=== PATIENT | male | born 1985 | race Two or more races ===

== ENCOUNTER 2020-09-21 20:01 | Emergency (ER) | payer SELFPAY ==
[~2020-09-21] VITALS: Ht 175.3 cm; Wt 100.0 kg
[2020-09-21] MEDS ORDERED: ONDANSETRON PF 4 MG/2 ML VIAL. IVP ONE (20:45)
[2020-09-21] MEDS ORDERED: IV NORMAL SALINE 1000ML BAG 1,000 ML IV SCH (20:45)
[2020-09-21] MEDS ORDERED: fentaNYL PF VIAL 100 MCG/2 ML VIAL IVP ONE (20:45)
--- NOTE | 2020-09-21 21:03 | PHYS DOC ---
General Adult EDM: Chief Complaint: ABDOMINAL PAIN HPI: HPI: Patient is a 35 year old male who presents with 10 days of abdominal redness that is very tender with slight swelling and is hard to palpate over the umbilical area. Patient denies any drainage from this area. He states he has had some nausea and vomiting and lack of appetite. He states he is been trying to take ibuprofen at home but it does not help his pain. He states is a burning type pain. He rates it at a 10 out of 10. He states is also been burning with urination and not going on for the last 10 days also. He denies any past medical history or surgeries. He denies smoking or drinking. Patient is Danish-speaking and deaf. Patient can read lips. Patient's family member is in the room with him and we are also using the educational sign language interpreter phone. (TROY RIVERA APRN) Review of Systems: Review of Systems: Constitutional: Denies fever or chills. [] Eyes: Denies change in visual acuity. [] HENT: Denies nasal congestion or sore throat. [] Respiratory: Denies cough or shortness of breath. [] Cardiovascular: Denies chest pain or edema. [] GI: + abdominal pain, +nausea, +vomiting, denies bloody stools or diarrhea. [] : + dysuria. [] Musculoskeletal: Denies back pain or joint pain. [] Integument: Denies rash. + Abdominal redness [] Neurologic: Denies headache, focal weakness or sensory changes. [] Endocrine: Denies polyuria or polydipsia. [] Lymphatic: Denies swollen glands. [] Psychiatric: Denies depression or anxiety. [] (TROY RIVERA APRN) Heart Score: C/O Chest Pain: No Risk Factors: Risk Factors: DM, Current or recent (<one month) smoker, HTN, HLP, family history of CAD, obesity. Risk Scores: Score 0 - 3: 2.5% MACE over next 6 weeks - Discharge Home Score 4 - 6: 20.3% MACE over next 6 weeks - Admit for Clinical Observation Score 7 - 10: 72.7% MACE over next 6 weeks - Early Invasive Strategies (TROY RIVERA APRN) Current Medications: Current Medications Medications (Trade) Dose Ordered Sig/Aga Start Time Stop Time Status Last Admin Dose Admin Fentanyl Citrate (Fentanyl 2ml Vial) 50 mcg 1X ONCE 09/21/20 20:45 09/21/20 20:46 UNV Ondansetron HCl (Zofran) 4 mg 1X ONCE 09/21/20 20:45 09/21/20 20:46 UNV Sodium Chloride 1,000 ml @ 1,000 mls/hr Q1H 09/21/20 20:45 09/21/20 21:44 UNV (TROY RIVERA APRN) Physical Exam: PE: Constitutional: Well developed, well nourished, no acute distress, non-toxic appearance. [] HENT: Normocephalic, atraumatic, bilateral external ears normal, oropharynx moist, no oral exudates, nose normal. [] Eyes: PERRLA, EOMI, conjunctiva normal, no discharge. [] Neck: Normal range of motion, no tenderness, supple, no stridor. [] Cardiovascular:Heart rate regular rhythm, no murmur [] Lungs & Thorax: Bilateral breath sounds clear to auscultation [] Abdomen: Bowel sounds normal, soft, umbilical tenderness, no masses, no pulsatile masses. [] Skin: Warm, dry, umbilical erythema and a hard nonfluctuant area to the umbilical, no rash. [] Back: No tenderness, no CVA tenderness. [] Extremities: No tenderness, no cyanosis, no clubbing, ROM intact, no edema. [] Neurologic: Alert and oriented X 3, normal motor function, normal sensory function, no focal deficits noted. [] Psychologic: Affect normal, judgement normal, mood normal. [] (TROY RIVERA APRN) Current Patient Data: Labs: Laboratory Tests Test 09/21/20 21:25 09/21/20 23:50 White Blood Count 12.2 x10^3/uL Red Blood Count 5.29 x10^6/uL Hemoglobin 14.8 g/dL Hematocrit 43.5 % Mean Corpuscular Volume 82 fL Mean Corpuscular Hemoglobin 28 pg Mean Corpuscular Hemoglobin Concent 34 g/dL Red Cell Distribution Width 13.5 % Platelet Count 343 x10^3/uL Neutrophils (%) (Auto) 51 % Lymphocytes (%) (Auto) 38 % Monocytes (%) (Auto) 9 % Eosinophils (%) (Auto) 1 % Basophils (%) (Auto) 1 % Neutrophils # (Auto) 6.2 x10^3/uL Lymphocytes # (Auto) 4.6 x10^3/uL Monocytes # (Auto) 1.1 x10^3/uL Eosinophils # (Auto) 0.1 x10^3/uL Basophils # (Auto) 0.1 x10^3/uL Sodium Level 143 mmol/L Potassium Level 3.9 mmol/L Chloride Level 105 mmol/L Carbon Dioxide Level 27 mmol/L Anion Gap 11 Blood Urea Nitrogen 11 mg/dL Creatinine 0.8 mg/dL Estimated GFR (Cockcroft-Gault) 110.7 BUN/Creatinine Ratio 14 Glucose Level 106 mg/dL Lactic Acid Level 1.2 mmol/L Calcium Level 8.7 mg/dL Total Bilirubin 0.2 mg/dL Aspartate Amino Transf (AST/SGOT) 22 U/L Alanine Aminotransferase (ALT/SGPT) 57 U/L Alkaline Phosphatase 94 U/L Troponin I Quantitative < 0.017 ng/mL Total Protein 7.4 g/dL Albumin 3.8 g/dL Albumin/Globulin Ratio 1.1 Lipase 135 U/L Urine Collection Type Unknown Urine Color Yellow Urine Clarity Clear Urine pH 6.5 Urine Specific [place] 1.020 Urine Protein Negative mg/dL Urine Glucose (UA) Negative mg/dL Urine Ketones (Stick) Negative mg/dL Urine Blood Negative Urine Nitrite Negative Urine Bilirubin Negative Urine Urobilinogen Dipstick 0.2 mg/dL Urine Leukocyte Esterase Negative Urine RBC 0 /HPF Urine WBC Rare /HPF Urine Squamous Epithelial Cells Occ /LPF Urine Bacteria 0 /HPF Current Medications Medications (Trade) Dose Ordered Sig/Aga Route PRN Reason Start Time Stop Time Status Last Admin Dose Admin Sodium Chloride 1,000 ml @ 1,000 mls/hr Q1H IV 09/21/20 20:45 09/21/20 21:44 DC 09/21/20 21:36 Fentanyl Citrate (Fentanyl 2ml Vial) 50 mcg 1X ONCE IVP 09/21/20 20:45 09/21/20 21:02 DC 09/21/20 21:37 Ondansetron HCl (Zofran) 4 mg 1X ONCE IVP 09/21/20 20:45 09/21/20 21:02 DC 09/21/20 21:36 Iohexol (Omnipaque 300 Mg/ml) 75 ml 1X ONCE IV 09/21/20 22:00 09/21/20 22:01 DC 09/21/20 22:27 Info (CONTRAST GIVEN -- Rx MONITORING) 1 each PRN DAILY PRN MC SEE COMMENTS 09/21/20 22:00 09/23/20 21:59 Vital Signs: Vital Signs Date Time Temp Pulse Resp B/P (MAP) Pulse Ox O2 Delivery O2 Flow Rate FiO2 09/21/20 21:37 20 97 Room Air Vital Signs Date Time Temp Pulse Resp B/P (MAP) Pulse Ox O2 Delivery O2 Flow Rate FiO2 09/21/20 21:37 20 97 Room Air (DESTINI NICHOLS DO) EKG: EK and read by Dr. Jerome as sinus rhythm and no STEMI (TROY RIVERA [facility]) Radiology/Procedures: Radiology/Procedures: [] (TROY RIVERA LEARNING CONSULTANT) Radiology/Procedures: Exam: CT of abdomen and pelvis with contrast INDICATION: Abdominal cellulitis, possible abscess TECHNIQUE: Sequential axial images through the abdomen and pelvis obtained following the administration of 75 mL of Isovue-370 IV contrast. Sagittal and coronal reformatted images were reconstructed from the axial data and reviewed. Exposure: One or more of the following in the visualized dose reduction techniques were utilized for this examination: 1. Automated exposure control 2. Adjustment of the MA and/or KV according to patient size 3. Use of iterative of reconstructive technique Comparisons: None FINDINGS: Heart size is normal. No pericardial effusion. Visualized lung bases are clear. No pleural effusion. Diffuse hepatic steatosis. Spleen, pancreas and adrenals are unremarkable. Gallbladder surgically absent. No perinephric inflammation or hydronephrosis. No renal or ureteral calculi are identified. Bladder is distended and appears thin-walled. Prostate is not enlarged. Large and small bowel are unremarkable. Appendix is normal. No free intra- abdominal air or fluid. No obstruction. Abdominal aorta has a normal course and caliber. Abdominal vasculature is patent. No enlarged intra-abdominal lymph nodes are identified. There is a fat-containing umbilical hernia which has a small amount of herniated fat with mild stranding and edema. No focal fluid collection. No suspicious osseous lesions or acute fractures. IMPRESSION: Umbilical hernia containing a small amount of fat with stranding and edema. No herniated bowel or evidence for obstruction. No focal fluid collection to suggest abscess. Electronically signed by: Dany Pereira MD (09/21/2020 10:37 PM) [facility] (DESTINI NICHOLS DO) Course & Med Decision Making: Course & Med Decision Making Pertinent Labs and Imaging studies reviewed. (See chart for details) See HPI. Alert and oriented x4. Ambulatory with a steady gait. Speaks in full clear sentences. Umbilical abdomen is baseball sized redness cellulitis area that is nonfluctuant and hard. The umbilicus itself is slightly swollen also. There is no drainage. It is very tender. You can see where the redness is starting to spread out across the abdomen bilaterally also. It is hot to touch. No CVA tenderness. Skin pink warm and dry. He is afebrile. Patient states he has had a lack of appetite. [] (TROY RIVERA APRN) Course & Med Decision Making I assumed care of patient after comprehensive signout from [employer] at her shift's end I reviewed ER workup so far and personally evaluated patient repeating certain aspects of history and physical exam I reviewed findings with patient and friend in room. Discussed no role in antibiotics, hernia is reducible and therefor not a [facility] I advised continued supportive care with close PCP and likely gen surgery follow-up in outpatient setting for discussion on management I used a brace end mainspring former near end of ER visit to confirm receipt of all information discussed, plan of care, return precautions etc with patient and friend with good understanding Patient tolerating po intake, ambulatory and well-appearing on ER departure (DESTINI NICHOLS DO) Dragon Disclaimer: Dragon Disclaimer: This electronic medical record was generated, in whole or in part, using a voice recognition dictation system. (TROY RIVERA APRN) Departure Departure Impression: Primary Impression: Abdominal pain Additional Impression: Umbilical hernia Disposition: HOME / SELF CARE / HOMELESS Condition: STABLE Referrals: NO PCP (PCP) VALERIA STALLINGS MD Call this number to schedule outpatient follow-up for evaluation of your reducible umbilical hernia Patient Instructions: Abdominal Pain (Nonspecific) Additional Instructions: You have been evaluated in the Emergency Department today for abdominal pain. Your evaluation was not suggestive of any emergent condition requiring medical intervention at this time. However, some abdominal problems make take more time to appear. Therefore, it is important for you to watch for any new symptoms or worsening of your current condition. You need to follow-up with your primary care provider and review ER visit today, there might be further role in outpatient work-up and potentially specialist referral Return to the Emergency Department if you experience worsening pain, persistent fevers greater than 100.4, recurrent vomiting, blood in vomit, blood in stool, dark tarry stool, chest pain, difficulty breathing, or any other concerning symptoms. TROY RIVERA APRN September 21, 2020 21:03 DESTINI NICHOLS DO September 21, 2020 22:42
[2020-09-21 21:39] LABS: BASO # 0.1 x10^3/uL (0.0-0.2); BASO % 1 % (0-3); EOS # 0.1 x10^3/uL (0.0-0.7); EOS % 1 % (0-3); HEMATOCRIT 43.5 % (39.0-53.0); HEMOGLOBIN 14.8 g/dL (13.0-17.5); LYMPH # 4.6 x10^3/uL (1.0-4.8); LYMPH % 38 % (24-48); MEAN CORPUSCULAR HEMOGLOBIN 28 pg (25-35); MEAN CORPUSCULAR HGB CONC 34 g/dL (31-37); MEAN CORPUSCULAR VOLUME 82 fL (79-100); MONO # 1.1 x10^3/uL (0.0-1.1); MONO % 9 % (0-9); NEUT # 6.2 x10^3/uL (1.8-7.7); NEUT % 51 % (31-73); PLATELET COUNT 343 x10^3/uL (140-400); RED BLOOD COUNT 5.29 x10^6/uL (4.30-5.70); RED CELL DISTRIBUTION WIDTH 13.5 % (11.5-14.5); WHITE BLOOD COUNT 12.2 x10^3/uL (4.0-11.0)
--- NOTE | 2020-09-21 21:41 | EKG ---
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
[2020-09-21 21:49] LABS: CALCIUM 8.7 mg/dL (8.5-10.1); CREATININE 0.8 mg/dL (0.7-1.3); GFR 110.7; POTASSIUM 3.9 mmol/L (3.5-5.1)
[2020-09-21 21:54] LABS: ALBUMIN 3.8 g/dL (3.4-5.0); ALBUMIN/GLOBULIN RATIO 1.1 (1.0-1.7); TOTAL BILIRUBIN 0.2 mg/dL (0.2-1.0); TOTAL PROTEIN 7.4 g/dL (6.4-8.2)
[2020-09-21] MEDS ORDERED: IOHEXOL 300 MG/ML 100ML VIAL. IV ONE (22:00)
[2020-09-21] MEDS ORDERED: CONTRAST GIVEN. MC PRN (22:00)
--- NOTE | 2020-09-21 22:40 | RAD ---
Exam: CT of abdomen and pelvis with contrast INDICATION: Abdominal cellulitis, possible abscess TECHNIQUE: Sequential axial images through the abdomen and pelvis obtained following the administrati on of 75 mL of Isovue-370 IV contrast. Sagittal and coronal reformatted images were reconstructed fro m the axial data and reviewed. Exposure: One or more of the following in the visualized dose reduction techniques were utilized for this examination: 1. Automated exposure control 2. Adjustment of the MA and/or KV according to patient size 3. Use of iterative of reconstructive technique Comparisons: None FINDINGS: Heart size is normal. No pericardial effusion. Visualized lung bases are clear. No pleural effusion. Diffuse hepatic steatosis. Spleen, pancreas and adrenals are unremarkable. Gallbladder surgically abs ent. No perinephric inflammation or hydronephrosis. No renal or ureteral calculi are identified. Bladder is distended and appears thin-walled. Prostate is not enlarged. Large and small bowel are unremarkable. Appendix is normal. No free intra-abdominal air or fluid. No obstruction. Abdominal aorta has a normal course and caliber. Abdominal vasculature is patent. No enlarged intra-abdominal lymph nodes are identified. There is a fat-containing umbilical hernia which has a small amount of herniated fat with mild strand ing and edema. No focal fluid collection. No suspicious osseous lesions or acute fractures. IMPRESSION: Umbilical hernia containing a small amount of fat with stranding and edema. No herniated bowel or clotilde dence for obstruction. No focal fluid collection to suggest abscess. Electronically signed by: Dany Pereira MD (09/21/2020 10:37 PM) [facility]
[2020-09-22 00:03] LABS: BILIRUBIN,URINE NEGATIVE (NEG); CLARITY,URINE CLEAR; COLOR,URINE YELLOW; NITRITE,URINE NEGATIVE (NEG); PH,URINE 6.5 (<5.0-8.0); PROTEIN,URINE NEGATIVE (NEG-TRACE); UROBILINOGEN,URINE 0.2 mg/dL (0.2 mg/dL)
[2020-09-22 00:12] LABS: BACTERIA,URINE 0 /HPF (0-FEW); RBC,URINE 0 /HPF (0-2); WBC,URINE RARE /HPF (0-4)
[2020-09-22 01:10] VITALS: BP 123/61
== END 2020-09-22 01:10 | disposition home or self-care (01) ==
LOC: ER 20:01
DX: K42.9 Umbilical hernia without obstruction or gangrene (principal)
CPT/HCPCS: 36415; 74177; 80053; 81001; 83605; 83690; 84484; 85025; 87040; 93005; 96361; 96374; 96375; 99285; J2405; J3010; J7030; Q9967